=== PATIENT | male | born 1990 | race Two or more races ===

== ENCOUNTER 2016-03-30 12:21 | Emergency (ER) | payer MEDICAID ==
[~2016-03-30] VITALS: Ht 175.3 cm; Wt 82.6 kg
[2016-03-30 14:36] VITALS: BP 120/77
== END 2016-03-30 15:14 | disposition home or self-care (01) ==
LOC: ER 12:21
DX: N39.0 Urinary tract infection, site not specified (principal); F17.210 Nicotine dependence, cigarettes, uncomplicated; F12.10 Cannabis abuse, uncomplicated; F15.10 Other stimulant abuse, uncomplicated
CPT/HCPCS: 81002